=== PATIENT | female | born 1945 | race Two or more races ===

== ENCOUNTER 2023-06-10 12:43 | Emergency (ER) | payer MEDICARE, OTHER ==
[~2023-06-10] VITALS: Ht 149.9 cm; Wt 89.0 kg
[2023-06-10 20:54] VITALS: BP 237/86; PULSE 84; RESP 19; TEMP 97.7; O2SAT 99
== END 2023-06-10 21:12 | disposition home or self-care (01) ==
LOC: ER 12:43
DX: M25.561 Pain in right knee (principal); E11.9 Type 2 diabetes mellitus without complications; I10 Essential (primary) hypertension
CPT/HCPCS: 73562; 93971